=== PATIENT | male | born 1960 | race Asian ===

== ENCOUNTER 2016-10-07 18:48 | Emergency (ER) | payer BC ==
[~2016-10-07 18:48] MED LIST: FLOMAX0.4 M1 PO; NO MEDICATIONS; VICODIN ES 7.51 EAC1 PO; ZOFRAN ODT4 MG PO
[2016-10-07 19:33] LABS: CALCIUM SERUM 9.3 mg/dL (8.4-10.2); CREATININE SERUM 1.4 mg/dL (0.6-1.4); GLOM FILT RATE Estimated 55.7 mL/min (>60); POTASSIUM 4.1 mmol/L (3.5-5.1)
== END 2016-10-07 19:54 | disposition home or self-care (01) ==
LOC: SED 18:48
PROVIDERS: Physician Assistant Medical
DX: I10 Essential (primary) hypertension (principal); N28.9 Disorder of kidney and ureter, unspecified
CPT/HCPCS: 36415; 80048; 99283